=== PATIENT | male | born 1975 | race Caucasian/White ===

== ENCOUNTER → 2024-08-24 09:04 | Outpatient (REF) | payer BC, SELFPAY | LOC: RAD 09:04 | PROVIDERS: ATTENDING PHYSICIAN Physician Assistant Medical; FAMILY PHYSICIAN Family Medicine | DX: R05.9 Cough, unspecified (principal) | CPT/HCPCS: 71046 ==

== ENCOUNTER → 2024-09-04 08:28 | Outpatient (REF) | payer BC, SELFPAY | LOC: RAD 08:28 | PROVIDERS: ATTENDING PHYSICIAN Family Medicine | DX: R05.9 Cough, unspecified (principal); J18.9 Pneumonia, unspecified organism; J40 Bronchitis, not specified as acute or chronic | CPT/HCPCS: 71046 ==

== ENCOUNTER 2025-05-13 01:35 | Inpatient (IN) | payer BC, SELFPAY ==
[2025-05-12 22:19] VITALS: BP 180/106
--- NOTE | 2025-05-12 22:38 | ED.GENMED ---
History of Present Illness
General
Chief Complaint: Chest Pain
Source: patient
Exam Limitations: none
Time Seen by Provider: 05/12/25 22:28
Nursing documentation reviewed up to this point in time: agreed with
History of Present Illness
History of Present Illness:
Patient is a 49-year-old male with history of hypertension who presents with complaints of chest pain. Episodes began yesterday evening lasting approximately 1-1/2 hours. No associated symptoms. Chest pain reportedly substernal radiating to his
left upper chest. He denies shortness of breath nor palpitations, no nausea or vomiting, no diaphoresis. He had similar chest pain this afternoon that lasted about 30 minutes and again tonight after dinner that began around 7 PM, again lasting
around 30 minutes. The pain resolved prior to arrival to the ED. He attempted relief with drinking a cold drink which did not provide immediate resolution, though the symptoms naturally subsided after some time.
He admits to rare, previous episodes of chest pain which generally resolve promptly after drinking a cold drink. Most recently over the past 24 hours, chest pain did not promptly resolve with drinking liquids thus patient became concerned and
presented to the ED.
He has had no URI symptoms, no fever nor chills. No recent travel. No leg pain or swelling. No dizziness nor lightheadedness. No headache.
He does have a history of hypertension, maintained on losartan. He does not monitor his blood pressure at home however yearly visits with his PCP, he states blood pressure is generally well-controlled.
There is no family history of CAD.
Past History
Past History
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 No neurologic sequelae); Negative CAD
ED Past Surgical History: Brain (Meningitis as an infant, temporary intraventricular shunt.)
Social History
Tobacco: Non-smoker
Alcohol: Occasional
Drug: None
Personal:
Living: with family
Employment: Employed
Family History
Family History: Hypertension; Negative CAD or Sudden
Phy Exam
Physical Exam
Physical Exam:
GENERAL: 49-year-old overweight gentleman appears his stated age, awake and alert, very mildly anxious/apprehensive otherwise easily communicative and in no acute distress.
EYE: anicteric
NECK: Supple, nontender, no meningismus, no significant adenopathy. No JVD.
ENT: oral mucosa is moist. No rhinorrhea.
CARDIAC: Regular rate and rhythm. no murmur. No chest wall tenderness.
LUNGS: Clear breath sounds bilaterally, no acute respiratory distress, no wheezes/rales/rhonchi
ABDOMEN: Rotund, soft, nondistended, without focal tenderness, no r/g, normoactive BS.
NEUROLOGICAL: Alert and oriented x3, no focal neuro deficits.
SKIN: Warm and dry, normal color, skin intact. No rash.
MUSCULOSKELETAL: No C/C/E. peripheral pulses are full and equal b/l. Well-perfused. No palpable tenderness.
PSYCH: Normal and appropriate interaction.
Scores
Heart Score for Chest Pain Patients
STEMI patient?: No
History: Moderately Suspicious
ECG: Nonspecific Repolarization
Age: >45 - <65 years
Risk Factors: 1 or 2 Risk Factors
Troponin: >/= 3 x Normal Limit
Heart Score for Chest Pain Patients: 6
Heart Score Risk: 20.3% MACE over next 6 weeks
Course
Orders/Labs/Results
Orders:
Orders
05/12/25 22:12
ECG [Electrocardiogram (*1)] Urgent
Reason for Study: Chest Pain
05/12/25 22:13
EKG- Treatment ONCE
05/12/25 22:37
Aspirin Chewable [Low Strength Aspirin] 324 mg PO NOW STA
05/12/25 23:28
Complete Blood Count/With Diff Urgent
Comprehensive Metabolic Panel Urgent
D-Dimer Urgent
Glycohemoglobin (HgbA1c) Urgent
Troponin I Urgent
05/12/25 23:55
Add On- LAB Urgent
Tests Added?: HgbA1c
05/13/25 00:15
PTT Urgent
Comment: Obtain baseline before beginning heparin infusion if not already collected
Heparin 4,000 units IV NOW STA
Heparin 24097 Units/250 ml 25,000 units in 250 ml IV PER PROTOCOL
Weight to be used for heparin protocol in kilograms (kg):: 123.4
Protocol:: Cardiac Tx/Acute Coronary
PTT Goal Range to be used:: PTT 73 to 111 seconds
Order type:: Initial
INITIAL Infusion Dose (UNITS/KG/hr) & then follow protocol:: 12 units/kg/hr
Infusion Dose in UNITS/hr & then follow protocol (UNITS/hr):: 1,000
INFUSION RATE in mL/hr & then follow protocol (mL/hr):: 10
PTT less than or equal to 64 seconds:: Increase rate by 200 units/hr (+ 2 mL/hr)
PTT 64.1 to 72.9 seconds:: Increase rate by 100 units/hr (+ 1 mL/hr)
PTT 73 to 111 seconds:: Target Range. No change in rate.
PTT 111.1 to 130.9 seconds:: Decrease rate by 100 units/hr (- 1 mL/hr)
PTT 131 to 199.9 seconds:: HOLD for 1 hr. Then decrease rate by 200 units/hr (- 2 mL/hr)
PTT greater than or equal to 200 seconds:: HOLD for 2 hrs & Notify Provider. Then decrease by 200 units/hr (-
2 mL/hr)
Lab follow-up:: Each change, PTT q6h until 2 consecutive are therapeutic. Then PTT
daily.
Pharmacy Request to Place See Dose Instructions PO NOW STA
Discontinue all Active Warfarin orders?: Yes
Nursing to Place Non Medication Order As Directed
Physician Order: PTT 6 hours after initial start of Heparin infusion
05/13/25 00:16
Metoprolol [Lopressor] 5 mg IV NOW STA
Nitroglycerin Ointment [Nitro-Bid] 1 inch TOPICAL NOW STA
05/13/25 01:[address] See Dose Instructions IV DIRECTED
Abnormal Lab Results
05/12/25
23:28
Absolute Monos (auto) 0.7 H 10^3/uL
(0.1-0.6)
Sodium 133 L mmol/L
(135-145)
BUN 22 H mg/dl
(9-20)
Glucose 375 H mg/dl
(70-99)
Troponin I 1.040 H* ng/ml
05/12/25 23:28
05/12/25 23:28
Vital Signs
Initial and Last Documented VS:
Initial Vital Signs
Temp Pulse Resp BP Pulse Ox
97.7 F 108 24 180/106 98
05/12/25 22:19 05/12/25 22:19 05/12/25 22:19 05/12/25 22:19 05/12/25 22:19
Last Documented Vital Signs
Temp Pulse Resp BP Pulse Ox
97.7 F 85 19 162/101 95
05/12/25 22:19 05/12/25 23:45 05/12/25 23:45 05/12/25 23:15 05/12/25 23:45
MDM/Problems Addressed
Differential Diagnosis Includes:
The differential diagnosis includes, in no particular order and is not limited to:
Angina
TN
Costochondritis
GERD
Aortic dissection
Pericarditis
Pneumothorax
Pulmonary embolus
Anxiety or panic disorder
Musculoskeletal pain
EKG shows normal sinus rhythm, left axis deviation, I question very minimal ST elevation inferiorly with flipped T waves in 3 and aVF. No reciprocal changes. No old EKGs to compare.
Initial triage vital signs notes significant hypertension at 180/106. Mild tachycardia at 108.
Will plan to check labs including troponin, D-dimer.
Closely monitor vital signs as well as potline monitor.
Will give 324 mg chewable aspirin.
Will consider imaging depending on clinical course and laboratory findings.
MDM/Problems Addressed:
Acute:
Intermittent chest pain x 24 hours
Chronic conditions affecting care: HTN
*Pulse Oximetry
SaO2: 98
Oxygen Mode of Delivery: Room air
Patient hypoxic: no
*EKG
Interpreted by ED Provider?: Yes
Interpretation: abnormal
Comparison EKG: no comparison EKG present
Rate: normal
Rhythm: sinus
[place]: left axis deviation
Interval: normal interval
QRS Pattern: normal QRS
Ischemia: non-specific ST changes
*Transformation Architect Interpretation
Rate: normal
Interpretation: normal
Rhythm: sinus
*Critical Care Note
Total Time (30-74mins, 75-104mins- exclusive of procedures): 30
comment:
Critical care statement: A total of 30 minutes of critical care time was provided for this patient. This includes management of unstable vital signs, evaluation of the patient at bedside, reviewing the patient's pertinent medical records, discussion
with consultants, review of old EKGs and review of pertinent medical records. This time with separate from time utilized to perform the aforementioned documented procedures
Update Note
Update Note:
Patient remains chest pain-free.
Blood pressures improved to 150/90. Mild sinus tachycardia with heart rate around 100-108
Labs are remarkable for elevated troponin 1.04, consistent with non-STEMI.
Random glucose also elevated at 375. Patient reports no prior history of diabetes nor prediabetes. Hemoglobin A1c has been added to the lab. D-dimer is negative. CBC is normal. Normal renal function.
Will initiate IV heparin bolus and drip for ACS. Will add Nitropaste. Will give an IV dose of Lopressor for hypertension and mild tachycardia.
Will admit to hospitalist service and will notify cardiology as well.
ED Attending Note
-
Portions of this chart may have been created with voice recognition software.� Occasional wrong word or��sound alike� substitutions may have occurred due to the inherent limitations of voice recognition software.
Discharge Plan
Departure
Patient Disposition: Admit
Date of Disposition: 05/13/25
Time of Disposition: 00:23
Admit to: IVU
Admit to doctor: Daniel
Presentation/result/management discussed w/ accepting MD/DO: Hospitalist
Condition: Serious
Discharge Problem:
Non-ST elevated myocardial infarction (non-STEMI)
Referrals:
Mana Carvalho DO [Family Provider, Family Practice]
Interventions
Interventions:
*Risk Screen - Suicide Last Done: 05/12/25 22:19
*General Assessment Last Done: 05/12/25 23:54
*Neglect/Abuse Screening Last Done: 05/12/25 22:19
*ED- Fall Risk Assessment Last Done: 05/12/25 23:54
*ED COVID-19 Vaccine History Last Done: 05/12/25 23:52
*ED Influenza Vaccine History Last Done: 05/12/25 23:52
ED- Cardiac Assessment Last Done: 05/12/25 23:51
Discharge Date and Time
Print Language: INDONESIAN
[2025-05-12 23:15] VITALS: BP 162/101
[2025-05-12 23:40] LABS: Hematocrit 47.7 % (39.0-52.0); Hemoglobin 16.7 g/dL (13.0-18.0); Mean Corp Hgb Conc. 35.0 g/dL (33.0-37.0); Mean Corpuscular Volume 85.9 fL (80.0-94.0); Nucleated Red Blood Cells % 0 % (-); Platelet Count 199 10^3/uL (130-400); Red Cell Dist. Width 11.9 % (11.5-14.5)
[2025-05-12 23:49] LABS: ALT (SGPT) 40 U/L (0-50); AST (SGOT) 33 U/L (17-59); Albumin 4.4 g/dl (3.5-5.0); Alkaline Phosphatase 71 U/L (38-126); Blood Urea Nitrogen 22 mg/dl (9-20); Calcium 9.4 mg/dl (8.4-10.2); Carbon Dioxide 27 mmol/L (22-30); Chloride 100 mmol/L (98-107); Glucose 375 mg/dl (70-99); Potassium 4.5 mmol/L (3.5-5.1); Sodium 133 mmol/L (135-145); Total Protein 6.8 g/dl (6.3-8.2); eGFR > 60.00
[2025-05-12 23:52] VITALS: BMI 36.9
[2025-05-12] MEDS: LOW STRENGTH ASPIRIN 324 MG PO (23:53)
[2025-05-12 23:54] LABS: D-Dimer < 0.27 ug/mlFEU (0.00-0.50)
[2025-05-13] VITALS (25 sets, daily range): BP systolic 114–177; BP diastolic 82–110; BMI 35.8
[2025-05-13 00:06] LABS: Troponin I 1.040 ng/ml
[2025-05-13] MEDS: NITRO-BID 1 INCH TOPICAL (00:50)
[2025-05-13] MEDS: LOPRESSOR 5 MG IV (00:51)
[2025-05-13 01:03] LABS: APTT 23.5 Sec (23.4-35.0)
[2025-05-13] MEDS: HEPARIN 4000 UNITS IV (01:14)
[2025-05-13] MEDS: HEPARIN 25000 UNITS/250 ML IV (01:15)
--- NOTE | 2025-05-13 01:19 | HPS.HSE ---
Family Physician
-
Family Physician: Mana Carvalho
Chief Complaint
-
Chest Pain
History of Present Illness
Patient is a 49y M with PMH significant for hypertension and obesity who presents to ED complaining of chest pain. Patient states that he initially had chest pain last PM after dinner. He noted substernal pain with slight radiation to the L.
No radiation to the back, abdomen, jaw, etc. No associated shortness of breath, diaphoresis, N/V, etc. Patient states that the episode lasted about 30 minutes and then resolved. He was not doing any heavy lifting, exertion, etc at that time.
He had a second episode today around noon. This was shortly after lunch, had same characteristics and also resolved within 30 minutes. This evening he had a third similar episode after dinner and a friend advised him to present to the ED for
evaluation.
Patient denies any prior history of known heart disease. He states that he would occasionally develop some chest tightness in the past that would improve with drinking cold water.
In the ED, patient is pain-free and has no current complaints.
Medical History
Past Medical History
Past Medical History: Reports Other
Additional Past Medical History:
Hypertension
Obesity
Childhood Meningitis
Past Surgical History: Reports Other
Additional Past Surgical History:
Cerebral Shunt for Childhood Meningitis (removed)
Social History
Tobacco: Non-smoker
Alcohol: Occasional
Drug: None
Family History
Family History: Other (Father: HTN Mother: MS No known family history of heart disease, diabetes, etc.)
Allergies / Home Medications
Allergies reflects when Allergies were last updated in [employer]
Home Medications with original date entered in [employer]
Allergy/Medication List:
Allergies
Allergy/AdvReac Type Severity Reaction Status Date / Time
No Known Allergies Allergy Verified 05/12/25 22:21
Home Medications
losartan 50 mg tablet 50 mg PO DAILY 05/13/25
Review of Systems
-
History Source: Patient
A 12 point ROS was completed and negative except as noted: Yes
Constitutional: Denies Fever or Chills
Respiratory: Denies Cough or Trouble Breathing
Cardiac: Reports Chest Pain; Denies Diaphoresis, Palpitations or Syncope
Abdomen/GI: Denies Abdominal Pain, Nausea or Vomiting
: Denies Dysuria or Flank Pain
Musculoskeletal: Denies Joint Pain or Edema
Neurological: Denies Dizzy or Headache
Psych: Denies Depression or Anxiety
Physical Exam
Vital Signs
Vital Signs
Temp Pulse Resp BP Pulse Ox
97.7 F 93 16 167/107 95
05/12/25 22:19 05/13/25 00:51 05/13/25 00:00 05/13/25 00:51 05/13/25 00:00
Physical Exam
General: Other (Midly anxious 49y M in no acute distress.)
HEENT: Moist mucous membranes and Other (Thick neck.)
Respiratory: Clear; No Wheezes, Rales or Rhonchi
Cardiac: S1/S2 and Regular Rhythm; No Murmur
GI: Soft, Non Tender, Non Distended and Normal Bowel Sounds
Musculoskeletal: No Clubbing, No Cyanosis and No Edema
Neuro: AO x 3
Laboratory Results
-
05/12/25 23:28
05/12/25 23:28
Laboratory Results
APTT 23.5 Sec (23.4-35.0) 05/13/25 00:44
Total Bilirubin 0.7 mg/dl (0.2-1.3) 05/12/25 23:28
AST 33 U/L (17-59) 05/12/25 23:28
ALT 40 U/L (0-50) 05/12/25 23:28
Alkaline Phosphatase 71 U/L (38-126) 05/12/25 23:28
Troponin I 1.040 ng/ml H* 05/12/25 23:28
Impression/Plan
-
A/P: Patient is a 49y M with PMH significant for hypertension and obesity who presents to ED complaining of chest pain.
NSTEMI / ACS
Hypertensive Urgency / Emergency
- Admit to IVU for further evaluation and treatment.
- 3 episodes of chest pain in the past [address] with inferior ST changes concerning for ischemia. Initial troponin is 1.040.
- Pain free at present - follow for any recurrent symptoms.
- IV heparin. Begin Toprol, ASA daily, statin, etc.
- Check lipid panel.
- Cardiology consulted for additional recommendations and likely ischemic evaluation.
- Continue losartan. Add Toprol as noted above. NTG as needed for recurrent chest discomfort. IV labetalol as needed for very high BP.
- Adjust med regimen as needed for improved BP control.
DM-II - New
- Glucose on admission is 375 consistent with newly recognized DM.
- Patient reports that it has been a few years since he had routine labs done.
- Follow glucose and cover with SSI as needed.
- Check A1C.
- Diabetic education.
Obesity due to excess calories
- Affects all aspects of care.
- Encourage healthy diet and increased exercise with goal of weight loss.
DVT Prophylaxis: On IV Heparin
Code Status: Full
--- NOTE | 2025-05-13 02:47 | PTCARENOTE ---
Pt rec'd from ED on stretcher awake,alert 'anxious' about hospital stay and needles. Heparin drip at 1000 unit/hr. B/P elevated on adm however not within parameter to give Trandate. No c/o cp or sob. Pt aware to remain npo and call if CP should
reoccur. adm hx taken and recorded.
[2025-05-13 07:29] LABS: INR 0.97; PT 13.2 Sec (11.4-14.6)
[2025-05-13 07:30] LABS: APTT 35.5 Sec (23.4-35.0)
[2025-05-13 07:36] LABS: Blood Urea Nitrogen 20 mg/dl (9-20); Calcium 9.4 mg/dl (8.4-10.2); Carbon Dioxide 25 mmol/L (22-30); Chloride 102 mmol/L (98-107); Estimated Creatinine Clearance > 125 ml/min; Glucose 279 mg/dl (70-99); Potassium 4.5 mmol/L (3.5-5.1); Sodium 134 mmol/L (135-145); Very Low Density Lipoprotein 30 mg/dl (0-30); eGFR > 60.00
[2025-05-13 07:46] LABS: HDL Cholesterol 49 mg/dl; LDL Cholesterol, Calculated 141 mg/dl
[2025-05-13 07:53] LABS: Troponin I 1.540 ng/ml
--- NOTE | 2025-05-13 08:29 | CON.CAR ---
Consultation
Consultation Request
Date/Time Consultation Requested: 05/13/2025 02:00
Date/Time Consultation Performed: 05/13/2025 08:00
Requesting Provider: Dr. Sanchez
Performing Provider: NIA Pina for Dr. Arceo
Reason for Consultation: NSTEMI
Medical History
-
Chief Complaint: Chest pain
History of Present Illness:
Bebeto Mendoza is a 49-year-old male with hypertension, hypercholesterolemia, and anxiety who presented to the emergency department with a chief complaint of chest pain. He had multiple episodes of midsternal anterior chest pain. He describes it as
a pressure/heaviness. No associated diaphoresis, nausea, nor vomiting. He did have some radiation into the left upper chest. His chest pain started early Tuesday morning. This woke him up from his sleep. It was approximately 30 minutes in
duration. It that returned yesterday afternoon at approximately 2 PM while at the [facility]. It went away after 20 minutes. It then returned shortly after dinner. He attributed this to GI issues. His chest pain then returned again last evening. He
is currently chest pain-free at rest. He received ASA 324 in the emergency department and was started on a heparin drip. EKG with inferior T wave abnormality. Initial troponin 1.040. He has significant fasting hyperglycemia, HgbA1c pending.
Past Medical History
Past Medical History: HTN, Hypercholesterolemia, Psychiatric (Anxiety) and Other (Meningitis status post shunt & removal [1970s])
Social History
Tobacco: Non-Smoker (Never smoker)
Alcohol: Other (Rare, a few drinks a year)
Drug: None
Personal:
Employment: Employed
Family History
Family History: Reviewed & Not Pertinent (Denies premature CAD and SCD.)
Allergies / Home Medications
Allergy/AdvReac Type Severity Reaction Status Date / Time
No Known Allergies Allergy Verified 05/12/25 22:21
�Medication �Instructions �Recorded �Confirmed �Type
losartan 50 mg tablet 50 mg PO DAILY 05/13/25 05/13/25 History
Review of Systems
-
History Source: Patient
All other systems: Negative unless noted
Constitutional: No Symptoms
EENT: No Symptoms
Respiratory: No Symptoms
Cardiac: Chest Pain (See HPI)
Abdomen/GI: No Symptoms
: No Symptoms
Musculoskeletal: No Symptoms
Skin: No Symptoms
Neurological: No Symptoms
Endocrine: No Symptoms
Hematologic/Lymphatic: No Symptoms
Physical Exam
Vital Signs
Temp Pulse Resp BP Pulse Ox
97.9 F 84 22 137/86 97
05/13/25 05:15 05/13/25 06:15 05/13/25 05:15 05/13/25 05:16 05/13/25 05:15
Lab Results
05/12/25 23:28
05/13/25 07:11
Troponin I Cancelled 05/13/25 14:09
Physical Exam
General: Well Developed, Well Nourished, No Apparent Distress and Comfortable
HEENT: Normocephalic, Anicteric and Moist Mucous Membranes
Respiratory: Clear
Cardiac: S1/S2 and Regular Rhythm; Negative Peripheral Edema
Breast: Deferred by me
GI: Soft, Non Tender, Non Distended and Normal Bowel Sounds
Rectal: Deferred by Provider
Genito-urinary: No Costovertebral Tender
Musculoskeletal: No Clubbing and No Cyanosis
Skin: Warm and Dry
Neuro: AO x 3
Hematologic/Lymphatic: No Lymphadenopathy
Psych: Calm
Impression / Plan
-
I/P: 49M with hypertension, hypercholesterolemia, and anxiety who presented with chest pain.
Outpatient photographic process worker: None
NSTEMI
- Currently chest pain-free
- Loaded with ASA (324 mg in ER), continue 81 mg daily
- Troponin 1.040 on admission -> 1.540, trend to peak
- Continue heparin drip until cardiac catheterization
- Currently chest pain-free at rest
- Echocardiogram
- Cardiac catheterization today
Hypertension
- Above goal, metoprolol succinate 25 mg twice daily added
- Continue losartan 50 mg
Hypercholesterolemia
- TC 220, LDL 141, HDL 49, TG 154
- Started on atorvastatin 40 mg
- LDL goal to be determined after coronary angiography
Fasting hyperglycemia
- Glucose 279 this morning, HgbA1c pending
Obesity, BMI 35, can consider GLP-1 as an outpatient, await HgbA1c to see which medication he would qualify for
Data Reviewed
-
EKG: Report Reviewed by me
Medical Tests (Nuc Med, Echo etc): Report Reviewed by me
Labs: Labs Reviewed by me
Old Records: Reviewed
Scores
PK for NSTEMI
Age >/= 65: No
>/=3 CAD risk factors-HTN,High Chol,Fam hx CAD,DM,Smoker: Yes
Known CAD (stenosis >/=50%): No
ASA use in past 7 days: No
Severe angina (>/= 2 episodes in 24 hrs): Yes
EKG ST Changes >/= 0.5mm: No
Positive cardiac marker: Yes
Score: 3
Risk at 14 days-mortality, new/recurrent AK, severe ischemia: Intermediate Risk- 13% Risk at 14 days- all cause mortality, new or recurrent AK, or severe recurrent ischemia requiring urgent revascularization
[2025-05-13 08:51] LABS: Glycohemoglobin (HgbA1c) 11.4 % (4.0-5.6)
[2025-05-13] MEDS: TOPROL XL 25 MG PO ×2 (09:05→20:24)
[2025-05-13] MEDS: COZAAR 50 MG PO (09:05)
[2025-05-13] MEDS: LOW STRENGTH ASPIRIN 81 MG PO (09:05)
[2025-05-13 09:15] LABS: Glucose - Point of Care 270 mg/dl (70-99)
[2025-05-13 10:01] LABS: ACT-LR - POC 311 Seconds (116-155)
[2025-05-13 10:18] LABS: ACT-LR - POC 292 Seconds (116-155)
--- NOTE | 2025-05-13 10:24 | ITS.CL.ANGIO ---
Cyber Security Architect - Angioplasty
Angioplasty
Procedure Report:
CARDIAC CATHETERIZATION REPORT
Date of Procedure: 05/13/2025
Referring: Juice Sanchez D.O.
INDICATION: Non-ST elevation myocardial infarction.
PROCEDURE:
1. Left heart catheterization.
2. Coronary angiography.
3. Successful PCI of the distal RCA.
A total of 49 minutes of procedural/moderate sedation was utilized. An independent medical pathologist was present to assist with and help manage the patient's level of consciousness and physiologic status.
ACCESS:
1. 6 Canadian right common femoral artery using a modified Seldinger technique with a micropuncture under ultrasound guidance.
CATHETERS:
1. 5 Canadian JR4.
2. 5 Canadian JL 4.
3. 6 Canadian JR4 guiding catheter.
HEMODYNAMIC DATA
Weight (kg): 119.3
AO (s/d/x, mmHg): 158/97/119
LV (s/x mmHg): 156/15
LEFT VENTRICULOGRAPHY: Not performed.
CORONARY ANGIOGRAPHY
Dominance: Right.
Left Main: Normal size, bifurcating vessel. There is no coronary artery disease.
LAD: Normal size vessel giving rise to 2 diagonals. There are minor luminal irregularities.
Ramus: Congenitally absent.
Circumflex: Normal size, nondominant vessel that is essentially a single large obtuse marginal supplying the lateral wall. There is no coronary artery disease.
RCA: Large size, dominant vessel with a notable posterolateral arcade. There is a critical, 90-95% lesion in the distal RCA immediately proximal to the small RPDA origin.
INTERVENTION(S)
1. Successful PCI of the 90-95% distal RCA lesion (Medtronic [place] 3.0 x 26 EMIL, postdilated with a 3.0 NC balloon) with reduction in stenosis to 0%, maintaining/restoring PK-3 flow.
Narrative:
The decision was made to proceed with percutaneous coronary intervention. The diagnostic catheter was removed over a wire and a 6Fr JR4 guiding catheter was advanced to the aortic root and seated in the right coronary artery. Additional heparin was
given and a Power Turn Flex wire was advanced into the distal RPL. The 90-95% distal RCA lesion was predilated with a 2.0 x 12 semi-compliant balloon to 12 jazmyn. Nitroglycerin 150 mcg was given intracoronary. The semi-compliant balloon was removed
and a Medtronic [place] 3.0 x 26 drug-eluting stent was advanced. The stent was deployed at 12 atmospheres. The stent balloon was removed. A 3.0 x 15 noncompliant balloon was advanced into the stent and the stent was postdilated to 14
atmospheres. Angiography was performed in orthogonal views, confirming good stent expansion and an excellent angiographic result with some sluggish flow in the RPDA in spite of the stent terminating proximal to the origin of the RPDA. Nitroglycerin
150 mcg was given intracoronary with improvement in flow throughout the entire vessel. The coronary wire was withdrawn and the guide was disengaged from the artery. The catheter was removed over a standard J-wire.
Closure Device: 6 Canadian Angio-Seal.
Radiation (mGy): 1250.48
DAP (cm2.Gy): 85.1901
Fluoroscopy time (minutes): 8.8
CONCLUSIONS
1. Right dominant circulation with luminal irregularities in the LAD and a critical, culprit 90-95% lesion in the distal RCA immediately proximal to the origin of the small RPDA, status post successful PCI (Medtronic [place] 3.0 x 26 EMIL,
postdilated with a 3.0 NC balloon) with reduction in stenosis to 0%, maintaining/restoring PK III flow.
2. Mildly elevated filling pressures (LVEDP = 15 mmHg at 119.3 kg).
3. Right radial artery loop, not suitable for central arterial access.
RECOMMENDATIONS:
1. Expectant management after cardiac catheterization via right common femoral approach.
2. Limited weight bearing for one week.
3. Dual antiplatelet therapy with aspirin and ticagrelor for at least 12 months, followed by aspirin indefinitely.
4. OMT/GDMT as hemodynamics will tolerate.
5. Aggressive secondary prevention with high-dose, high potency statin. Goal LDL <55.
6. Echocardiogram ordered and pending.
7. Referral to cardiac rehab.
Copy to: Juice Sanchez D.O., Mana Carvalho D.O.
Ted Arceo DO, FACC, FACP
[2025-05-13] MEDS: NOVOLOG FLEXPEN-LOW RESISTANCE SC (10:32)
--- NOTE | 2025-05-13 10:36 | PTCARENOTE ---
Pt received back from labor relations teacher s/p [facility] with stent to RCA. AAOx3. NSR on tele, HR 90s. Spo2 95%. VSS. R radial site CDI. R femoral dressing CDI. Pt educated about activity restrictions. Assessment documented. Pt resting in bed, call werner in reach.
--- NOTE | 2025-05-13 11:21 | CM ---
Chart reviewed. Patient is independent of ADLS, lives alone in a [facility], children visit 1-2x a week, 2 ESTHER, 0 DME. Plan is for the patient to return home. CM to follow
--- NOTE | 2025-05-13 11:35 | CM ---
Pricing on Brilinta and Ticagrelor through the patient's PP is $0 copay after the patient meets his cumulative deductible of $3000($733) has been met. I will give patient a Good Rx coupon for ticagrelor. [facility]icagrelor is in stock at the [facility]'s [facility].
[2025-05-13] MEDS: NOVOLOG FLEXPEN-LOW RESISTANCE 2 UNITS SC (11:52)
[2025-05-13 11:53] LABS: Glucose - Point of Care 249 mg/dl (70-99)
[2025-05-13 12:36] LABS: Troponin I 1.710 ng/ml
--- NOTE | 2025-05-13 13:45 | PN.DE.MGMTRT ---
Insulin Management
- -
05/13/2025: Diabetes Management Consult
49 year old male with PMH: CAD, HTN, HLD, and Anxiety and new dx T2DM. Patient presented to the ED c/o chest pain. He had multiple episodes of midsternal anterior chest pain. He describes it as a pressure/heaviness. No associated diaphoresis,
nausea, nor vomiting. His glucose on admission was 375 venous and A1C 11.4%, Cr 0.8, eGFR >60. Denies any family h/o diabetes.
Pt awake alert and oriented, resting in bed, s/p PCI of the distal RCA, offers no complaints, able to discuss diabetes care plan.
Fasting glucose was 279 V, 270 POC today. Pre-lunch blood sugar was 249, pt received [address] Grady has ordered basal bolus insulin, Lantus 18 units @ HS, AC NovoLog 6 units and low corrective insulin with meals.
Will make no changes to current regimen. Will closely monitor glucose trend and adjust insulin dose if necessary. Discussed with Nurse
Had a lengthy discussion with pt regarding A1C and glucose levels. Counseled pt on intense lifestyle modification, to avoid diabetes related complications.
Emphasized importance of daily exercise, diabetic diet (avoiding processed foods), consistent glucose monitoring and taking insulin as prescribed.
Pt states 'that is a lot of information for today' he would prefer getting the Diabetes Education for glucose monitor and insulin instructions tomorrow.
Will ask Diabetes Nurse Educator to see pt tomorrow
Diabetes History
- -
Type of Diabetes: 2 requiring insulin
Pre-Admission Diabetes Regimen
05/12/25 05/13/25
23:28 07:11
Creatinine 0.9 0.8
Lab Results
Hemoglobin A1c 11.4 % (4.0-5.6) H 05/12/25 23:28
Insulin Pump Settings
IP Diabetes Regimen
05/12/25 05/13/25 05/13/25
23:28 07:11 09:13
Glucose 375 H 279 H
POC Glucose 270 H
05/13/25
11:51
Glucose
POC Glucose 249 H
Patient Education
--- NOTE | 2025-05-13 14:26 | W.PN.HOSP.TC ---
Today's Communication/Plan
-
Monitor vital signs and see plan
Consult diabetes LAND DEVELOPMENT MANAGER
Start insulin
Cardiac cath today
Nonbillable note
Assessment / Plan
Assessment / Plan
General: no acute distress
HEENT: Moist mucous membranes
Respiratory: Clear; No Wheezes, Rales or Rhonchi
Cardiac: S1/S2 and Regular Rhythm
GI: Soft, Non Tender, Non Distended and Normal Bowel Sounds
Musculoskeletal: No Edema
Neuro: AO x 3
NSTEMI / ACS
Hypertensive Emergency
Trend troponin
Status post successful PCI of distal RCA. Now on aspirin and Brilinta.
Check echo
Continue statin
Continue metoprolol, losartan
IV labetalol as needed for very high BP.
- Adjust med regimen as needed for improved BP control.
DM-II - New
- Glucose on admission is 375 consistent with newly recognized DM.
- Patient reports that it has been a few years since he had routine labs done.
A1c 11.4, consult diabetes LAND DEVELOPMENT MANAGER. Start insulin. Will need teaching
Obesity due to excess calories
- Affects all aspects of care.
- Encourage healthy diet and increased exercise with goal of weight loss.
DVT Prophylaxis: On IV Heparin
Code Status: Full
Anticipated Discharge: 24 - 48 hours
Subjective/Interval History
-
Date of Service: May 13, 2025
Denies chest pain
Objective Data
-
Labs:
Laboratory Results
05/13/25 05/13/25
07:11 14:50
PT 13.2
INR 0.97
APTT 35.5 H Cancelled
Sodium 134 L
Potassium 4.5
Chloride 102
Carbon Dioxide 25
BUN 20
Creatinine 0.8
Glucose 279 H
Calcium 9.4
Vital Signs:
Vital Signs
Temp Pulse Resp BP Pulse Ox
97.5 F 81 15 160/95 93
05/13/25 11:24 05/13/25 12:30 05/13/25 11:24 05/13/25 12:00 05/13/25 12:30
I&O
05/12/25 05/13/25 05/14/25
06:59 06:59 06:59
Intake Total 480 / 480
Output Total 675 / 675
Balance -195 / -195
[2025-05-13 17:43] LABS: Glucose - Point of Care 278 mg/dl (70-99)
[2025-05-13] MEDS: NOVOLOG FLEXPEN 6 UNITS SC (17:46)
[2025-05-13] MEDS: NOVOLOG FLEXPEN-LOW RESISTANCE 3 UNITS SC (17:46)
[2025-05-13] MEDS: LIPITOR 40 MG PO (17:49)
[2025-05-13 18:38] LABS: Troponin I 1.330 ng/ml
[2025-05-13] MEDS: BRILINTA 90 MG PO (20:24)
--- NOTE | 2025-05-13 21:06 | PTCARENOTE ---
Received pt at change of shift resting in bed, pt at bedside. SR-ST on tele, HR 80's-110's. pt denies any CP or SOB at this time. Right radial site with tegaderm intact. Right groin site w/ dressing C/D/I, no bleeding or hematoma noted at this
time. Positive pulses. pt educated on activity restrictions for cath sites, verbalizes understanding. Encouraged pt to call RN with any questions/concerns. Call werner within reach.
[2025-05-13 22:34] LABS: Glucose - Point of Care 191 mg/dl (70-99)
[2025-05-13] MEDS: LANTUS 0.18 UNITS SC (22:34)
--- NOTE | 2025-05-13 23:00 | PTCARENOTE ---
report received from previous RN. pt in bed sleeping, pt at bedside. VSS. NSR on monitor, HR 80's. +peripheral pulses. no edema noted. heart tones clear. pt denies any CP or SOB at this time. right radial site tegaderm CDI. right groin site
dressing CDI, no bleeding or hematoma noted. bilateral breath sounds present. POX 95% on room air. PIV intact and patent. see worklist for full assessment, VS, and interventions.
[2025-05-14] VITALS (9 sets, daily range): BP systolic 97–137; BP diastolic 66–104; BMI 35.1
[2025-05-14 06:00] LABS: Hematocrit 44.4 % (39.0-52.0); Hemoglobin 15.0 g/dL (13.0-18.0); Mean Corp Hgb Conc. 33.8 g/dL (33.0-37.0); Mean Corpuscular Volume 87.1 fL (80.0-94.0); Nucleated Red Blood Cells % 0 % (-); Platelet Count 185 10^3/uL (130-400); Red Cell Dist. Width 12.4 % (11.5-14.5)
[2025-05-14 06:24] LABS: Blood Urea Nitrogen 17 mg/dl (9-20); Calcium 8.5 mg/dl (8.4-10.2); Carbon Dioxide 28 mmol/L (22-30); Chloride 103 mmol/L (98-107); Estimated Creatinine Clearance > 125 ml/min; Glucose 209 mg/dl (70-99); Potassium 4.0 mmol/L (3.5-5.1); Sodium 134 mmol/L (135-145); eGFR > 60.00
--- NOTE | 2025-05-14 07:12 | PN.DE.MGMTRT ---
Insulin Management
- -
05/14/2025: Diabetes Management Consult Follow up
Patient admitted 05/12 with c/o chest pain. PMH: CAD, HTN, HLD, and Anxiety. He had multiple episodes of midsternal anterior chest pain. He describes it as a pressure/heaviness. No associated diaphoresis, nausea, nor vomiting. His glucose on
admission was 375 venous and A1C 11.4%, Cr 0.8, eGFR >60. Denies any family h/o diabetes.
Pt awake alert and oriented, out of bed in chair, s/p PCI of the distal RCA yesterday, offers no complaints, able to discuss diabetes care plan.
Glucose range yesterday 191 to 278. Received 6 units novolog at dinner and 18 units lantus @ HS; fasting glucose today 209.
Will increase HS lantus to 22 units and AC novolog to 8 units.
Demonstrated insulin pen steps for prep and injection technique. Patient very committed to self care and improved diabetes care.
05/13 Had a lengthy discussion with pt regarding A1C and glucose levels. Counseled pt on intense lifestyle modification, to avoid diabetes related complications.
Emphasized importance of daily exercise, diabetic diet (avoiding processed foods), consistent glucose monitoring and taking insulin as prescribed.
Diabetes Nurse Educator to see pt today to provide and instruct on monitor and reinforce insulin prep and administration.
Discussed with nurse.
Will follow.
Diabetes History
- -
Type of Diabetes: 2 requiring insulin
Pre-Admission Diabetes Regimen
05/13/25 05/14/25
07:11 05:34
Creatinine 0.8 0.7
Lab Results
Hemoglobin A1c 11.4 % (4.0-5.6) H 05/12/25 23:28
Insulin Pump Settings
IP Diabetes Regimen
05/13/25 05/13/25 05/13/25
07:11 09:13 11:51
Glucose 279 H
POC Glucose 270 H 249 H
05/13/25 05/13/25 05/14/25
17:42 22:33 05:34
Glucose 209 H
POC Glucose 278 H 191 H
Meal type: Dinner
Meal type: Lunch
Amount consumed: 100%
Amount consumed: 100%
Patient Education
[2025-05-14 07:15] LABS: Glucose - Point of Care 200 mg/dl (70-99)
[2025-05-14] MEDS: TOPROL XL 25 MG PO ×2 (07:56→20:11)
[2025-05-14] MEDS: LOW STRENGTH ASPIRIN 81 MG PO (07:56)
[2025-05-14] MEDS: BRILINTA 90 MG PO ×2 (07:57→20:11)
[2025-05-14] MEDS: FLUSH (NSS) 1 FLUSH IV (07:57)
[2025-05-14] MEDS: COZAAR 50 MG PO (07:58)
--- NOTE | 2025-05-14 08:24 | W.PN.CD ---
Today's Communication / Plan
-
Echocardiogram.
Glucose control.
He would be an ideal candidate for GLP-1 medications as an outpatient.
Discharge planning (today vs. tomorrow).
Impression / Plan
-
Impression/Plan: 49M with hypertension, hypercholesterolemia, and anxiety admitted with NSTEMI.
#NSTEMI
-Acute, threat to life.
-Troponin 1.040 --> 1.540 --> 1.710 --> 1.330.
-S/P cardiac catheterization/PCI of the dRCA (Medtronic Dandre 3.0 x 26 EMIL, post dilated with a 3.0 NC balloon) with reduction in stenosis to 0%, maintaining PK III flow.
-Echocardiogram pending.
-DAPT with aspirin and ticagrelor for 12 months, followed by aspirin indefinitely.
-Continue atorvastatin, metoprolol and losartan.
-Referral to cardiac rehab.
#Hypertension
-Chronic, mildly/moderately uncontrolled.
-Metoprolol succinate 25 mg twice daily added with some improvement.
-Continue losartan 50 mg.
#Hypercholesterolemia
-Probably chronic, but a new diagnosis.
-TC 220, LDL 141, HDL 49, TG 154.
-Continue atorvastatin 40 mg daily. Goal LDL < 55, triglycerides < 150.
#DM2
-New diagnosis, uncontrolled.
-HbA1c = 11.4%.
-Management per primary.
-Hold metformin today, start tomorrow given recent cath/contrast exposure.
-He would be an ideal candidate for GLP-1 analog medications at the time of discharge.
#Obesity
-Chronic, BMI 35.
-Weight loss will be beneficial.
-GLP-1 medications clearly indicated.
Subjective/Interval History:
Cath yesterday with PCI of the dRCA.
Troponin peaked at 1.710.
HbA1c = 11.4%.
DATA:
Cardiac Catheterization/PCI, 05/13/2025:
CONCLUSIONS
1. Right dominant circulation with luminal irregularities in the LAD and a critical, culprit 90-95% lesion in the distal RCA immediately proximal to the origin of the small RPDA, status post successful PCI (Medtronic Dandre [place] 3.0 x 26 EMIL,
postdilated with a 3.0 NC balloon) with reduction in stenosis to 0%, maintaining/restoring PK III flow.
2. Mildly elevated filling pressures (LVEDP = 15 mmHg at 119.3 kg).
3. Right radial artery loop, not suitable for central arterial access.
Physical Exam
Vital Signs/Labs
Vital Signs
Temp Pulse Resp BP Pulse Ox
36.9 C 83 18 131/102 94
05/14/25 07:10 05/14/25 08:00 05/14/25 07:10 05/14/25 08:00 05/14/25 07:10
05/12/25 05/13/25 05/14/25
11:59 11:59 11:59
Actual Weight 119.6 kg
05/14/25 05:34
05/14/25 05:34
PT 13.2 Sec (11.4-14.6) 05/13/25 07:11
INR 0.97 05/13/25 07:11
APTT Cancelled 05/13/25 14:50
Triglycerides 154 mg/dl (10-149) H 05/13/25 07:11
LDL Cholesterol, Calc 141 mg/dl 05/13/25 07:11
VLDL Cholesterol, Calc 30 mg/dl (0-30) 05/13/25 07:11
HDL Cholesterol 49 mg/dl 05/13/25 07:11
LAB Results
05/12/25 05/13/25 05/13/25
23:28 01:30 02:09
Troponin I 1.040 H* Cancelled Cancelled
05/13/25 05/13/25 05/13/25
07:11 08:09 11:46
Troponin I 1.540 H* D Cancelled 1.710 H*
05/13/25 05/13/25
14:09 17:58
Troponin I Cancelled 1.330 H*
Physical Exam
Constitutional: No acute distress and Comfortable
EENT: Anicteric and Moist mucous membranes
Cardiovascular: Rhythm & rate is regular, Pedal edema is absent, JVD pressure is normal, S1S2 is normal and Murmur/rub/gallop absent
Respiratory: Respiratory effort normal, Lungs clear to auscul., Wheeze Absent, Crackles Absent and Rhonchi Absent
GI: Soft, Distention absent, Flat, Non tender and Normal bowel sounds
Neuro/Psych: AO x 3
Other: Cath Site (Right femoral access site is C/D/I.)
Data Reviewed
-
Date of Service: May 14, 2025
Medical Decision Making: Reviewed Test Results, Independent Historian Assessment and Test Interpretation
EKG: Tracing Personally Visualized and interpreted and Report Reviewed by me
Echo: Ordered by me
X-Ray/CT/US/MRI/NUC/PET: Image Personally Visualized and interpreted and Report Reviewed by me
Medical Tests (PFT, Pathology etc): Image Personally Visualized and interpreted and Report Reviewed by me
Labs: Labs Reviewed by me
--- NOTE | 2025-05-14 09:26 | CM ---
Pricing on Ozempic and monjaro are both covered under the diagnosis code of Type 2 DM. They will need prior authorization sent in to [email or web address]. After patient meets his total deductible of $3000, both are covered at $0.
[2025-05-14 10:04] LABS: Glucose - Point of Care 236 mg/dl (70-99)
[2025-05-14] MEDS: NOVOLOG FLEXPEN 8 UNITS SC ×3 (10:10→19:27)
[2025-05-14] MEDS: NOVOLOG FLEXPEN-LOW RESISTANCE 2 UNITS SC ×3 (10:10→19:26)
--- NOTE | 2025-05-14 10:56 | CM ---
Chart reviewed. Patient is independent of ADLS, lives alone in a 2 STH, 4STE, 0 DME. Plan is for the patient to return home. CM to follow
[2025-05-14 13:42] LABS: Glucose - Point of Care 237 mg/dl (70-99)
--- NOTE | 2025-05-14 13:47 | W.PN.HOSP.TC ---
Today's Communication/Plan
-
monitor vitals
see plan
Insulin teaching
Continue with Lantus, mealtime insulin
Metformin
Continue with beta-doug, losartan
Assessment / Plan
Assessment / Plan
General: no acute distress
HEENT: Moist mucous membranes
Respiratory: Clear; No Wheezes, Rales or Rhonchi
Cardiac: S1/S2 and Regular Rhythm
GI: Soft, Non Tender, Non Distended and Normal Bowel Sounds
Musculoskeletal: No Edema
Neuro: AO x 3
NSTEMI / ACS
Hypertensive Emergency
Trend troponin
Status post successful PCI of distal RCA. Now on aspirin and Brilinta.
Echo with normal EF
Continue statin
Continue metoprolol, losartan
IV labetalol as needed for very high BP.
- Adjust med regimen as needed for improved BP control.
DM-II - New
- Glucose on admission is 375 consistent with newly recognized DM.
- Patient reports that it has been a few years since he had routine labs done.
A1c 11.4, consult diabetes DECKHAND OYSTER DREDGE. Start insulin. Needs insulin teaching
Obesity due to excess calories
- Affects all aspects of care.
- Encourage healthy diet and increased exercise with goal of weight loss.
DVT Prophylaxis: SCD's
Code Status: Full
Anticipated Discharge: Within 24 hours
Subjective/Interval History
-
Date of Service: May 14, 2025
Denies pain
Objective Data
-
Labs:
Laboratory Results
05/14/25
05:34
WBC 8.1
Hgb 15.0
Hct 44.4
Plt Count 185
Sodium 134 L
Potassium 4.0
Chloride 103
Carbon Dioxide 28
BUN 17
Creatinine 0.7
Glucose 209 H
Calcium 8.5
Vital Signs:
Vital Signs
Temp Pulse Resp BP Pulse Ox
98.3 F 97 18 120/84 99
05/14/25 11:14 05/14/25 12:00 05/14/25 11:14 05/14/25 11:12 05/14/25 11:14
I&O
05/13/25 05/14/25 05/15/25
06:59 06:59 06:59
Intake Total 480 / 480
Output Total 675 / 675
Balance -195 / -195
--- NOTE | 2025-05-14 14:53 | PTCARENOTE ---
05/14/2025 DIABETES EDUCATION CONSULTATION
I met with patient and significant other to review diabetes management. he is newly diagnosed, is IP for an NSTEMi with angioplasty.
I educated on physiology of T2D, organ damage, managing with medications, monitoring BG, nutrition, activity, sleep and managing stress. I reinforced signs of hyperglycemia, hypoglycemia and hypoglycemia protocol; BS parameters and recommended HbA1c
goals, glucometer and CGM instructions, glucose tracker, medic alert bracelet and outpatient DSME program. He is interested in the OP DSME program beginning 05/20/2025. Appt set for registration appointment on 05/17/2025. Written material
provided.
I provided patient with Bob 3+ CGM, placed on L. arm, assisted with application set up, and provided brochure with additional information.
Reminded patient results are not accurate for first 24 hours, and to double check with a finger stick if he feels CGM is not providing accurate results.
I educated patient that CGM is placed with filament in interstitial fluid, results can be 15% different than fingerstick. Reviewed the application functionality: reports, alarms, entering food and insulin dosing.
I provided patient with a [employer] glucometer sample kit. Provided verbal instructions on proper blood sugar testing technique, and demonstration with patient�s participation.
I educated and demonstrated on insulin injection technique, timing, and storage. Discussed long and short acting insulin; onset/peak/duration, and encouraged her to administer his own injections with RN supervision while admitted. Discussed normal
target glucose ranges and a monitoring schedule 15 minutes before each meal when prescribed Novolog, and before bedtime.
Encouraged patient to follow up with his PCP for post d/c appointment and to monitor medication and blood glucose levels. Provided list of endocrinologists if desired, to contact insurance company to verify in network status. He states he
placed a call to an military source operations specialist today, is waiting to hear back regarding an appointment. He anticipates discharge by end of day 05/15/2025. Requested a prescription for blood sugar testing supplies to be sent to his pharmacy on record.
Patient verbalized understanding.
--- NOTE | 2025-05-14 15:16 | PTCARENOTE ---
The patient administered his lunch time insulin with little coaching and proper technique.
[2025-05-14 18:55] LABS: Glucose - Point of Care 204 mg/dl (70-99)
[2025-05-14] MEDS: LIPITOR 40 MG PO (19:27)
--- NOTE | 2025-05-14 20:24 | PTCARENOTE ---
Resumed care of pt ambulating in hallway with . Pt HR in the low 100's while walking, in the 90's in NSR once at rest. Pt AAOx3. POX 95% on Ra. Lungs clear. + bowel, round obese abd. Pt ambulating to bathroom independently when needed. Palpable
peripheral pulses present. Right groin cath site with dressing clean dry and intact with local ecchymosis. Right radial site intact with tegaderm in place. left AC int capped. diabetes education discussed. No issues to report at this time. Call werner
in reach. Will continue to monitor.
[2025-05-14 21:50] LABS: Glucose - Point of Care 127 mg/dl (70-99)
[2025-05-14] MEDS: LANTUS 0.22 UNITS SC (22:15)
[2025-05-14] MEDS: SENOKOT-S 1 TABLET PO (22:15)
[2025-05-15 03:06] LABS: Glucose - Point of Care 145 mg/dl (70-99)
[2025-05-15 03:07] VITALS: BP 119/88
[2025-05-15 04:50] VITALS: BMI 35.1
[2025-05-15 05:11] LABS: Hematocrit 46.2 % (39.0-52.0); Hemoglobin 16.1 g/dL (13.0-18.0); Mean Corp Hgb Conc. 34.8 g/dL (33.0-37.0); Mean Corpuscular Volume 88.2 fL (80.0-94.0); Nucleated Red Blood Cells % 0 % (-); Platelet Count 202 10^3/uL (130-400); Red Cell Dist. Width 12.1 % (11.5-14.5)
[2025-05-15 05:33] LABS: Blood Urea Nitrogen 19 mg/dl (9-20); Calcium 9.2 mg/dl (8.4-10.2); Carbon Dioxide 26 mmol/L (22-30); Chloride 104 mmol/L (98-107); Estimated Creatinine Clearance > 125 ml/min; Glucose 169 mg/dl (70-99); Potassium 4.3 mmol/L (3.5-5.1); Sodium 136 mmol/L (135-145); eGFR > 60.00
[2025-05-15 07:06] VITALS: BP 128/92
[2025-05-15] MEDS: NOVOLOG FLEXPEN-LOW RESISTANCE 1 UNITS SC ×2 (07:07→12:46)
[2025-05-15 07:08] LABS: Glucose - Point of Care 165 mg/dl (70-99)
[2025-05-15] MEDS: NOVOLOG FLEXPEN 8 UNITS SC ×2 (07:08→12:47)
[2025-05-15] MEDS: COZAAR 50 MG PO (07:09)
[2025-05-15] MEDS: TOPROL XL 25 MG PO (07:09)
[2025-05-15] MEDS: GLUCOPHAGE 500 MG PO (07:09)
[2025-05-15] MEDS: LOW STRENGTH ASPIRIN 81 MG PO (07:09)
[2025-05-15] MEDS: BRILINTA 90 MG PO (07:10)
[2025-05-15 07:35] VITALS: BP 128/92
--- NOTE | 2025-05-15 08:51 | PN.DE.MGMTRT ---
Insulin Management
- -
05/15/2025: Diabetes Management Consult Follow up
Patient admitted 05/12 with c/o chest pain. PMH: CAD, HTN, HLD, and Anxiety. He had multiple episodes of midsternal anterior chest pain. He describes it as a pressure/heaviness. No associated diaphoresis, nausea, nor vomiting. His glucose on
admission was 375 venous and A1C 11.4%, Cr 0.8, eGFR >60. Denies any family h/o diabetes.
Pt awake alert and oriented, out of bed in chair, s/p PCI of the distal RCA yesterday, offers no complaints, able to discuss diabetes care plan.
Glucose range yesterday 204 to 237. Novolog increased to 8 units lantus increased to 22 units @ HS; fasting glucose today 169.
Will continue HS lantus 22 units and AC novolog 8 units with low corrective. Metformin 500 mg BID to start today.
Demonstrated insulin pen steps for prep and injection technique. Patient very committed to self care and improved diabetes care. Patient with many questions about where to take injections, what dose to take, what to eat, how to keep insulin. All
questions answered.
Diabetes Nurse Educator saw pt provided and instruct on monitor and Bob CGM and reinforced insulin prep and administration.
Discussed with nurse.
Will follow.
Diabetes History
- -
Type of Diabetes: 2 requiring insulin
Pre-Admission Diabetes Regimen
05/15/25
04:44
Creatinine 0.8
Lab Results
Hemoglobin A1c 11.4 % (4.0-5.6) H 05/12/25 23:28
Insulin Pump Settings
IP Diabetes Regimen
05/14/25 05/14/25 05/14/25
10:03 13:41 18:53
Glucose
POC Glucose 236 H 237 H 204 H
05/14/25 05/15/25 05/15/25
21:49 03:05 04:44
Glucose 169 H
POC Glucose 127 H 145 H
05/15/25
07:06
Glucose
POC Glucose 165 H
Meal type: Dinner
Meal type: Lunch
Meal type: Breakfast
Amount consumed: 100%
Amount consumed: 100%
Amount consumed: 100%
Patient Education
[2025-05-15] MEDS: SENOKOT-S PO (09:21)
--- NOTE | 2025-05-15 09:22 | PTCARENOTE ---
Patient received by hourly shift manager nurse, Pt AAOx4, No N/V/D, no CP/PALP. Appears anxious about new diagnose of DM. Patient reassured and educated on the fundamentals and importance of life style changes. Patient receptive. at bedside. Morning
Meds administered, VS taken, and morning breakfast called in. All questions and concerns answered.
[2025-05-15 11:14] VITALS: BP 134/88
--- NOTE | 2025-05-15 11:30 | W.PN.HOSP.TC ---
Today's Communication/Plan
-
Monitor vitals
See plan
Continue with insulin
Continue with aspirin and Brilinta
Continue with metoprolol, losartan
Discharge today
Time of discharge 38 minutes
Assessment / Plan
Assessment / Plan
General: no acute distress
HEENT: Moist mucous membranes
Respiratory: Clear; No Wheezes, Rales or Rhonchi
Cardiac: S1/S2 and Regular Rhythm
GI: Soft, Non Tender, Non Distended and Normal Bowel Sounds
Musculoskeletal: No Edema
Neuro: AO x 3
NSTEMI / ACS
Hypertensive Emergency
Status post successful PCI of distal RCA. Now on aspirin and Brilinta.
Echo with normal EF
Continue statin
Continue metoprolol, losartan
IV labetalol as needed for very high BP.
- Adjust med regimen as needed for improved BP control.
DM-II - New
- Glucose on admission is 375 consistent with newly recognized DM.
- Patient reports that it has been a few years since he had routine labs done.
A1c 11.4, consult diabetes SERVER SOFTWARE ENGINEER. cw insulin. Not comfortable taking insulin. Has akanksha and Contour. Discharge today
Obesity due to excess calories
- Affects all aspects of care.
- Encourage healthy diet and increased exercise with goal of weight loss.
DVT Prophylaxis: SCD's
Code Status: Full
Anticipated Discharge: Today
Subjective/Interval History
-
Date of Service: May 15, 2025
denies pain
Objective Data
-
Labs:
Laboratory Results
05/15/25
04:44
WBC 8.4
Hgb 16.1
Hct 46.2
Plt Count 202
Sodium 136
Potassium 4.3
Chloride 104
Carbon Dioxide 26
BUN 19
Creatinine 0.8
Glucose 169 H
Calcium 9.2
Vital Signs:
Vital Signs
Temp Pulse Resp BP Pulse Ox
98.2 F 91 18 128/92 98
05/15/25 11:16 05/15/25 11:16 05/15/25 11:16 05/15/25 07:35 05/15/25 11:16
I&O
05/14/25 05/15/25 05/16/25
06:59 06:59 06:59
Intake Total 480 / 480 480 / 480
Output Total 675 / 675
Balance -195 / -195 480 / 480
--- NOTE | 2025-05-15 12:00 | W.PN.CD ---
Today's Communication / Plan
-
Blood culture.
Repeat echo in 2-4 weeks.
DAPT.
GLP-1 analog at discharge.
Stable for outpatient follow up.
Impression / Plan
-
Impression/Plan: 49M with hypertension, hypercholesterolemia, and anxiety admitted with NSTEMI.
#NSTEMI
-Acute, threat to life.
-Troponin 1.040 --> 1.540 --> 1.710 --> 1.330.
-S/P cardiac catheterization/PCI of the dRCA (Medtronic Novato 3.0 x 26 EMIL, post dilated with a 3.0 NC balloon) with reduction in stenosis to 0%, maintaining PK III flow.
-Echocardiogram pending.
-DAPT with aspirin and ticagrelor for 12 months, followed by aspirin indefinitely.
-Continue atorvastatin, metoprolol and losartan.
-Referral to cardiac rehab.
#Abnormal Echo
-New diagnosis.
-Echocardiogram density paralleling anterior mitral leaflet.
-No evidence of sepsis. We will check a blood culture now prior to discharge, but there is no indication for antibiotics at this time.
-Repeat echocardiogram in 2-4 weeks.
#Hypertension
-Chronic, mildly/moderately uncontrolled.
-Continue losartan 50 mg and metoprolol succinate 25 mg BID.
#Hypercholesterolemia
-Probably chronic, but a new diagnosis.
-TC 220, LDL 141, HDL 49, TG 154.
-Continue atorvastatin 40 mg daily. Goal LDL < 55, triglycerides < 150.
#DM2
-New diagnosis, uncontrolled.
-HbA1c = 11.4%.
-Management per primary.
-Hold metformin today, start tomorrow given recent cath/contrast exposure.
-He would be an ideal candidate for GLP-1 analog medications at the time of discharge.
#Obesity
-Chronic, BMI 35.
-Weight loss will be beneficial.
-GLP-1 medications clearly indicated.
Subjective/Interval History:
Feels well.
Echo shows preserved systolic function and a linear opacity parallel to the anterior mitral leaflet - possibly MAC vs. shadowing or eccentric valve thickening or old, healed IE (less likely).
DATA:
Cardiac Catheterization/PCI, 05/13/2025:
CONCLUSIONS
1. Right dominant circulation with luminal irregularities in the LAD and a critical, culprit 90-95% lesion in the distal RCA immediately proximal to the origin of the small RPDA, status post successful PCI (Medtronic Dandre [place] 3.0 x 26 EMIL,
postdilated with a 3.0 NC balloon) with reduction in stenosis to 0%, maintaining/restoring PK III flow.
2. Mildly elevated filling pressures (LVEDP = 15 mmHg at 119.3 kg).
3. Right radial artery loop, not suitable for central arterial access.
TTE, 05/14/2025:
SUMMARY
1. Normal biventricular size and systolic function. No LV wall motion abnormalities. LVEF estimated at 50 to 55%.
2. Mild concentric LVH.
3. Thickening of the mitral valve leaflets, particularly the anterior leaflet. No stenosis or regurgitation.
4. 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 Ascending aorta 3.8 cm.
5. No prior study available for comparison.
Physical Exam
Vital Signs/Labs
Vital Signs
Temp Pulse Resp BP Pulse Ox
36.8 C 91 18 128/92 98
05/15/25 11:16 05/15/25 11:16 05/15/25 11:16 05/15/25 07:35 05/15/25 11:16
05/14/25 05/15/25 05/16/25
11:59 11:59 11:59
Actual Weight 117.3 kg 117.3 kg
05/15/25 04:44
05/15/25 04:44
PT 13.2 Sec (11.4-14.6) 05/13/25 07:11
INR 0.97 05/13/25 07:11
APTT Cancelled 05/13/25 14:50
Triglycerides 154 mg/dl (10-149) H 05/13/25 07:11
LDL Cholesterol, Calc 141 mg/dl 05/13/25 07:11
VLDL Cholesterol, Calc 30 mg/dl (0-30) 05/13/25 07:11
HDL Cholesterol 49 mg/dl 05/13/25 07:11
LAB Results
05/12/25 05/13/25 05/13/25
23:28 01:30 02:09
Troponin I 1.040 H* Cancelled Cancelled
05/13/25 05/13/25 05/13/25
07:11 08:09 11:46
Troponin I 1.540 H* D Cancelled 1.710 H*
05/13/25 05/13/25
14:09 17:58
Troponin I Cancelled 1.330 H*
Physical Exam
Constitutional: No acute distress and Comfortable
EENT: Anicteric and Moist mucous membranes
Cardiovascular: Rhythm & rate is regular, Pedal edema is absent, JVD pressure is normal, S1S2 is normal and Murmur/rub/gallop absent
Respiratory: Respiratory effort normal, Lungs clear to auscul., Wheeze Absent, Crackles Absent and Rhonchi Absent
GI: Soft, Distention absent, Flat, Non tender and Normal bowel sounds
Neuro/Psych: AO x 3
Other: Cath Site (Right femoral access site is C/D/I.)
Data Reviewed
-
Date of Service: May 15, 2025
Medical Decision Making: Reviewed Test Results, Independent Historian Assessment and Test Interpretation
EKG: Tracing Personally Visualized and interpreted and Report Reviewed by me
Echo: Tracing Personally Visualized and interpreted and Report Reviewed by me
X-Ray/CT/US/MRI/NUC/PET: Image Personally Visualized and interpreted
Medical Tests (PFT, Pathology etc): Image Personally Visualized and interpreted and Report Reviewed by me
Labs: Labs Reviewed by me
Old Records: Reviewed
[2025-05-15 12:42] LABS: Glucose - Point of Care 180 mg/dl (70-99)
--- NOTE | 2025-05-15 16:14 | W.DCSUMMARY ---
Discharge Summary
Discharge Data
Date of Admission: 05/13/25
Date of Discharge: 05/15/25
-
Pending Results: Yes
Hospital Course
49-year-old male with past medical history of obesity came to the hospital with chest pain consistent with non-ST elevation myocardial infarction along with hypertensive emergency. Patient was seen by cardiology and was taken for cardiac
catheterization with successful PCI of distal RCA. Patient was then started on aspirin and Brilinta. On this hospitalization he was also diagnosed with new onset diabetes mellitus. He was seen by diabetes nurse bradly. His A1c was 11.4. He
was then started on metformin and insulin. Insulin teaching was done while he was in the hospital. Once his symptoms continue to improve, he was then discharged home with instructions to follow-up with all the physicians outpatient.
Discharge Plan
-
Patient Disposition: Home (Routine Discharge)
Discharge Diagnosis/Procedures: NSTEMI, s/p angioplasty and stent to Right Coronary artery
New onset DM
Condition: Fair
Diet: Diabetic, Carb Controlled
Activity: As tolerated
Driving Restrictions: No driving for 24 hours
Other Services: Cardiac Rehab
Stand Alone Forms: DC Instructions- Cath/EP Lab
Referrals:
[facility]. Cardiac Rehab [Outside] - 06/05/25 1:00 pm
Referral Note: Cardiac Rehab Orientation appointment and First Exercise appointment is on 06/05/25 at 1pm.
The Cardiac Rehab gym is located on the first floor of the [facility].
Mana Carvalho DO [Family Provider, Family Practice] - in less than 1 week
Tammy Sellers CRNP [Specified Professional Personl, Cardiology] - 06/03/25 8:40 am
Prescriptions:
New
ticagrelor 90 mg Tablet
90 mg PO BID Qty: 60 11RF
atorvastatin 40 mg Tablet
40 mg PO QPM Qty: 30 0RF
metformin 500 mg Tablet
500 mg PO BID@0800,1700 Qty: 60 0RF
nitroglycerin 0.4 mg Tablet, Sublingual
0.4 mg sublingual [id number] PRN (Reason: Chest Pain) Qty: 30 0RF
aspirin 81 mg Tablet,Chewable
81 mg PO DAILY Qty: 30 0RF
metoprolol succinate 25 mg Tablet Extended Release 24 Hr
25 mg PO BID Qty: 60 0RF
(DME) Contour Next Test Strips Strip
Qty: 200 0RF
Rx Instructions:
As Directed
insulin aspart U-100 [Novolog FlexPen U-100 Insulin] 100 unit/mL (3 mL) Insulin Pen
8 unit SC AC Qty: 5 0RF
insulin glargine [Lantus Solostar U-100 Insulin] 100 unit/mL (3 mL) Insulin Pen
22 unit SC HS Qty: 5 0RF
(DME) lancets [Color Lancets] 21 gauge Misc
Qty: 200 0RF
Rx Instructions:
As Directed
(DME) pen needle, diabetic [Josie 2nd Gen Pen Needle] 32 gauge x 5/32' Needle
Qty: 200 1RF
Rx Instructions:
For use with lantus and novolog penAs Directed
(DME) pen needle, diabetic [TechLITE Pen Needle] 32 gauge x 5/32' Needle
Qty: 200 0RF
Rx Instructions:
inject insulin 4 times per day As Directed
Continued
losartan 50 mg tablet
50 mg PO DAILY
Discharge Orders:
Discharge Patient (As Directed); Ordered 05/15/25
Ordered By: Epi Grady
Care Plan Goals
Care Plan Goals:
Problem: Readiness for enhanced knowledge related to diagnosis and treatment plan
Goal: Understand your diagnosis and treatment plan needs, including medications if applicable.
Instructions: Know your diagnosis, underlying causes and treatment plan options, including medications if applicable. Consult with your health care team to learn about your diagnosis and treatment plan, including medications if applicable.
Discharge Date and Time
Discharge Date/Time: 05/15/25 14:21
Print Language: MACEDONIAN
== END 2025-05-15 14:21 | disposition home or self-care (01) | DRG 322 ==
LOC: IVU 01:35
PROVIDERS: ADMITTING PHYSICIAN Hospitalist; ATTENDING PHYSICIAN Internal Medicine; EMERGENCY PHYSICIAN Emergency Medicine; FAMILY PHYSICIAN Family Medicine; OTHER PHYSICIAN Internal Medicine Cardiovascular Disease
PROC: 4A023N7 Measurement of Cardiac Sampling and Pressure, Left Heart, Percutaneous Approach (ICD-10-PCS; 2025-05-13)
PROC: 027034Z Dilation of Coronary Artery, One Artery with Drug-eluting Intraluminal Device, Percutaneous Approach (ICD-10-PCS; 2025-05-13)
PROC: B2111ZZ Fluoroscopy of Multiple Coronary Arteries using Low Osmolar Contrast (ICD-10-PCS; 2025-05-13)
DX: I21.4 Non-ST elevation (NSTEMI) myocardial infarction (principal); I16.1 Hypertensive emergency; E11.9 Type 2 diabetes mellitus without complications; E66.09 Other obesity due to excess calories; Z68.35 Body mass index [BMI] 35.0-35.9, adult; I10 Essential (primary) hypertension; Z79.4 Long term (current) use of insulin; Z79.899 Other long term (current) drug therapy; Z86.61 Personal history of infections of the central nervous system
CPT/HCPCS: 80048; 80053; 80061; 82962; 83036; 84484; 85025; 85347; 85379; 85610; 85730; 87040; 93005; 93306; 93458; 96374; 96375; 99152; 99153; 99291; C1725; C1769; C1874; C1894; C9600; Q9967

== ENCOUNTER → 2025-05-20 13:21 | Outpatient (REF) | payer BC, SELFPAY ==
--- NOTE | 2025-05-17 14:09 | PN.DIAED02 ---
Referral
DSME Class Series Code: [id number]
Referred For: Diabetes Self-Management Training, Medical Nutrition Therapy, Self-Blood Glucose Monitoring, Long-Term Complication Instruction, Accute Complication Instruction, Continuous Glucose Monitoring, Medication management, Insulin
Instruction, Care Coordination, Disease Management
PHI Release Authorization Form Signed: Yes
Demographic
Patient's primary language-: Syriac
Education: Advanced college degree ()
Occupation: Professional (contract attorney)
Hours Worked/Week: 20-40
Shift: Day
- Social
Primary Support Person: Self
Primary Care Takers: Self
Living Arrangements: Self
- Learning Methods
Preferred Method: Hands-on demonstration
Barriers to Learning: None
Glycemic Control
- Blood Glucose Monitoring Assessment
Blood glucose monitoring at home: Yes
Monitor Brands: Other (Bob 3+ CGM and Contour Next Gen glucometer)
Frequency: >4x per day
Time: fasting, before breakfast, after breakfast, before lunch, after lunch, before dinner, after dinner, bedtime
- Hyperglycemia Assessment
Experiences Hyperglycemia: Yes
Frequency: 1-3x per week
- Hypoglycemia Assessment
Patient experiences hypoglycemia: No
- Blood Glucose Monitoring Results
Source: meter (CGM and glucometer)
- Hemoglobin A1c
Date: 05/13/25
A1C Percentage (%): 11.4
Medical History of Diabetes
Previous Diabetes Education: No
Previous visit with Dietitian: No
Complications/Comorbidity/Specialist: Heart Disease (TICAGRELOR 90 MG BID, NITROGLYCERINE 0.4 MG SL TID PRN FOR CP), Hypertension (METOPROLOL SUCCINATE ER 25 MG BID, LOSARTAN POTASSIUM 50 MG QD, ASA 81 MG QD), Hyperlipidemia (ATORVASTATIN 40 MG QD),
Metabolic (T2D: METFORMIN 500 MG BID, ASPART 8 UNITS AC, GLARGINE 22 U HS), Other / symptoms (STENTS PLACED 05/13/2025)
Current Home Medication
- Insulin Management
Patient adjusts own insulin dosages: No
Patient has access to glucagon: No
- Insulin Types
Novolog Lantus
Insulin Injection Site: Abdomen, Thigh (NOVOLOG ADMINISTERED IN ABDOMEN, LANTUS ADMINISTERED IN THIGH)
Administration Type: SoloSTAR
Measures
- Anthropometrics
Height: 6 ft
Actual Weight: 200 lb
- Blood Pressure / Pulse
Blood pressure: 126/78
Pulse: 85
- Diabetes Management
Medical Management for Diabetes: Complete physical exam (STATES IN LAST 3 MONTHS), Dental exam (05/09/2025), Other (COVID VAX 2021)
Self-Care
- Tobacco Usage
Do you now, or have you ever smoked?: Never smoked
- Alcohol & Drugs Usage
Amount/day: Social Occasions
- Meals & Dining
Meals & Dining: Patient skips meals: No, Food Intolerance / Allergy: No, Cultural / Judaism Dietary Needs: No
Primary Food President Sales And Marketing: Self
Primary Yeast Pumper: Self
Dining Out Frequency: 4-6x per week
- Physical Activity
Physical Limitation: Yes (STENTS PLACED 05/2025; CARDIAC REHAB BEGINS 05/2025)
Patient participates in physical Activity: No
- Self Foot-Care
Foot Problems: None
- Patient-Self Assessment
Diabetes Knowledge: Poor
Feelings About Diabetes: Guilt, Sadness / Depression
General Health: Poor
Importance of Health: Extremely
Stress Level: Medium
Barriers to Diabetes Management: Other (STATES HE DOES NOT KNOW)
Depression Survey Score: 2
- Diabetes Identification
Carries Diabetes Identification: No (ORDERED 05/14/2025)
Diabetes Identification Information Provided: Yes
Care Plan
- Education Needs
Patient Education Needs: Diabetes disease process, Chronic complications, Acute complications, Medication, Monitoring, Physical activity, Psychosocial Adjustment, Nutritional management, Goal setting & problem solving
Recommended Diabetes Training Program based on assessment: Outpatient Diabetes Education Program
- Plan of Care
Plan of Care:
DSME INITIAL CONSULTATION
Met with participant today for registration and initiation of Diabetes Self-management. He was recently inpatient this week, NSTEMI with stents placed. His HbA1c on 05/13/2025 was 11.4%. While inpatient, he was prescribed MDI with Novolog (6 u with
meals) and Lantus (22 u at night). We provided him with a Free Style Bob 3+ CGM, placed and reviewed andrew functionality and reporting. He has a PCP appt by the end of May; new endo appt pending. I reminded him to obtain an eye exam and inform
provider of his DM diagnosis.
He was upset during the meeting and crying, worried about complications from DM. He also has a lot of stress with work and previous divorce. States he has anxiety from his divorce, as well. I reviewed his CGM report; his TIR is 72% and 9% lows.
He had been sleeping on the side with the CGM, I explained this can cause low readings due to compression. His CGM #'s have been up to 40 points different than his glucometer, I explained there will be variation as the CGM rests in interstitial
fluid and to treat based on a fingerstick blood glucose if he is questioning the numbers. His BS has been 88 preprandial, 90-122 2 hours postprandial. I also reminded him that Novolog is to be injected if he is eating meals; he just started eating
3 meals a day and used to skip breakfast. He was not aware to not take Novolog if not eating.
We reviewed complications of diabetes, fasting and 2 hour post prandial glucose goals, signs and symptoms of hyperglycemia, signs and symptoms of hypoglycemia, and hypoglycemia protocol. We discussed exercise recommendations of at least 30 minutes
per day to help lower glucose levels. He has cardiac rehab starting the week of 05/27/2025.
I reviewed and provided diabetes management booklet, insurance billing code and advised he contact his health plan to discuss coverage and cost.
He has phone # for office if additional needs arise prior to class.
--- NOTE | 2025-05-17 14:37 | PN.DIAED04 ---
Education Record
- Education Record
Class Attended: Other (DSME INITIAL CONSULTATION)
DSME Class Series Code: [id number]
Instructor: Registered Nurse (Mady Jacobs RN)
Pre-Program Knowledge: No knowledge
Pre-Test Score (%): 55
Goals
- Goal 1
Being Active: Exercise 30 minutes-5 times per week
Goals To Be Evaluated: Exercise 30 mins-5x/week
- Goal 2
Healthy Eating: Follow meal plan
Goals To Be Evaluated: Follow meal plan
- Goal 3
Monitoring: Check blood sugar 4x daily-b4 breakfast/b4 lunch/b4 dinner/at bedtime (Wants to get off insulin)
Goals To Be Evaluated: Check blood sugar 4x/day
--- NOTE | 2025-05-21 14:38 | PN.DIAED14 ---
This is to notify you that your patient with diabetes, STORM CAO ( 1975), has enrolled in our diabetes self-management classes that are being held at [facility].
These classes will include an introduction to diabetes, diet, medication, exercise and prevention of complications. At the end of our class series, you will receive a report of your patient's participation and progress for your records.
Please contact me at the Diabetes Center, , if there is any particular information regarding your patient that might be helpful to me.
Sincerely,
Antonio KRAMER-KASSANDRA, [facility]
--- NOTE | 2025-05-21 14:38 | PN.DIAED04 ---
Education Record
- Education Record
Class Attended: Class 1
DSME Class Series Code: [id number]
Instructor: Registered Nurse (Mady Jacobs RN)
Class Curriculum:
Outpatient Diabetes Education Program:
Class 1 (120 minutes)
Describe the diabetes disease process and treatment options
Diabetes management
Develop personal strategies to promote health and behavior change
Integrate psychosocial adjustment for daily living
Monitor blood glucose and other parameters. Interpret and use the results for self-management decision making
Prevent, detect, and treat acute complications
Class Length (mins): 120
Post-Class 1 Test Score (%): 88
--- NOTE | 2025-05-23 17:55 | PN.DIAED06 ---
Meal Plans - Regular
- Meal Plan
Diabetic Meal Plan Name: 2000 calories
Breakfast - Total Carbohydrate (grams): 45
Breakfast - Starch Carbohydrate: 0
Breakfast - Fruit Carbohydrate: 0
Breakfast - Milk Carbohydrate: 0
Breakfast - Nonstarchy Vegetables: Yes
Breakfast - Meat/Protein: 1
Breakfast - Fat: 2
Morning Snack - Total Carbohydrate (grams): 30
Morning Snack - Starch Carbohydrate: 0
Morning Snack - Fruit Carbohydrate: 0
Morning Snack - Milk Carbohydrate: 0
Morning Snack - Nonstarchy Vegetables: Yes
Morning Snack - Meat/Protein: 0.5
Morning Snack - Fat: 0
Lunch - Total Carbohydrate (grams): 45
Lunch - Starch Carbohydrate: 0
Lunch - Fruit Carbohydrate: 0
Lunch - Milk Carbohydrate: 0
Lunch - Nonstarchy Vegetables: Yes
Lunch - Meat/Protein: 3
Lunch - Fat: 1
Afternoon Snack - Total Carbohydrate (grams): 30
Afternoon Snack - Starch Carbohydrate: 0
Afternoon Snack - Fruit Carbohydrate: 0
Afternoon Snack - Milk Carbohydrate: 0
Afternoon Snack - Nonstarchy Vegetables: Yes
Afternoon Snack - Meat/Protein: 0.5
Afternoon Snack - Fat: 0
Dinner - Total Carbohydrate (grams): 45
Dinner - Starch Carbohydrate: 0
Dinner - Fruit Carbohydrate: 0
Dinner - Milk Carbohydrate: 0
Dinner - Nonstarchy Vegetables: Yes
Dinner - Meat/Protein: 4
Dinner - Fat: 2
Evening Snack - Total Carbohydrate (grams): 15
Evening Snack - Starch Carbohydrate: 0
Evening Snack - Fruit Carbohydrate: 0
Evening Snack - Milk Carbohydrate: 0
Evening Snack - Nonstarchy Vegetables: Yes
Evening Snack - Meat/Protein: 0
Evening Snack - Fat: 0
== END ==
LOC: DES 13:21
PROVIDERS: ATTENDING PHYSICIAN Family Medicine
DX: E11.65 Type 2 diabetes mellitus with hyperglycemia (principal)
CPT/HCPCS: 99078

== ENCOUNTER → 2025-05-27 08:48 | Outpatient (REF) | payer BC, SELFPAY ==
--- NOTE | 2025-05-28 10:02 | PN.DIAED04 ---
Education Record
- Education Record
Class Attended: Class 2
DSME Class Series Code: [id number]
Instructor: Registered Dietitian (Miguelina Carpenter, RD, LDN, CDE)
Class Curriculum:
Outpatient Diabetes Education Program:
Class 2 (120 minutes)
Incorporate nutritional management into lifestyle
Understanding nutritional value
Understanding carbohydrate counting
Class Length (mins): 120
== END ==
LOC: DES 08:48
PROVIDERS: ATTENDING PHYSICIAN Family Medicine
DX: E11.65 Type 2 diabetes mellitus with hyperglycemia (principal)
CPT/HCPCS: 99078

== ENCOUNTER → 2025-06-03 13:27 | Outpatient (REF) | payer BC, SELFPAY ==
--- NOTE | 2025-06-04 14:34 | PN.DIAED04 ---
Education Record
- Education Record
Class Attended: Class 3
DSME Class Series Code: [id number]
Instructor: Registered Dietitian (Miguelina Carpenter, RD, LDN, CDE)
Class Curriculum:
Outpatient Diabetes Education Program:
Class 3 (120 minutes)
Incorporate nutritional management into lifestyle
Class Length (mins): 120
Post-Class 2 & 3 Test Score (%): 88
== END ==
LOC: DES 13:27
PROVIDERS: ATTENDING PHYSICIAN Family Medicine
DX: E11.65 Type 2 diabetes mellitus with hyperglycemia (principal)
CPT/HCPCS: 99078

== ENCOUNTER 2025-06-07 16:03 | Outpatient (RCR) | payer BC, SELFPAY ==
[2025-06-05 14:08] LABS: Glucose - Point of Care 142 mg/dl (70-99)
[2025-06-05 14:54] LABS: Glucose - Point of Care 113 mg/dl (70-99)
[2025-06-07 13:07] LABS: Glucose - Point of Care 111 mg/dl (70-99)
[2025-06-07 13:49] LABS: Glucose - Point of Care 80 mg/dl (70-99)
[2025-06-07 14:02] LABS: Glucose - Point of Care 110 mg/dl (70-99)
== END 2025-06-07 23:59 | disposition home or self-care (01) ==
LOC: CRHB 16:03
PROVIDERS: ATTENDING PHYSICIAN Internal Medicine Cardiovascular Disease
DX: I25.10 Atherosclerotic heart disease of native coronary artery without angina pectoris (principal); Z95.5 Presence of coronary angioplasty implant and graft; I25.2 Old myocardial infarction
CPT/HCPCS: 82962; 93308; 93321; 93325; 93797; 93798

== ENCOUNTER → 2025-06-10 13:17 | Outpatient (REF) | payer BC, SELFPAY ==
--- NOTE | 2025-06-11 13:32 | PN.DIAED04 ---
Education Record
- Education Record
Class Attended: Class 4
DSME Class Series Code: [id number]
Instructor: Registered Nurse (Mady Jacobs RN)
Class Curriculum:
Outpatient Diabetes Education Program:
Class 4 (120 minutes)
Develop personal strategies to promote health and behavior change
Incorporate physical activity into lifestyle
Utilize medications safety for maximum therapeutic effectiveness
Understand different medication/insulin mechanism of action
Preparing for travel
Class Length (mins): 120
Post-Class 4 Test Score (%): 87
== END ==
LOC: DES 13:17
PROVIDERS: ATTENDING PHYSICIAN Family Medicine
DX: E11.65 Type 2 diabetes mellitus with hyperglycemia (principal)
CPT/HCPCS: 99078

== ENCOUNTER → 2025-06-17 09:30 | Outpatient (REF) | payer BC, SELFPAY ==
--- NOTE | 2025-06-19 11:59 | PN.DIAED04 ---
Education Record
- Education Record
Class Attended: Class 5
DSME Class Series Code: [id number]
Instructor: Registered Nurse (Mady Jacobs RN)
Class Curriculum:
Outpatient Diabetes Education Program:
Class 5 (120 minutes)
Prevent, detect, and treat acute complications
Prevent, detect, and treat chronic complications through risk reduction
Develop personal strategies to address psychosocial issues and concerns
Development of diabetes self-management support plan
Letter to physician with DSMS plan attached sent
Class Length (mins): 120
Post-Program Knowledge: Demonstrates competency
Post-Test Score (%): 85
Post-Program Assessment
- Post-Program Assessment
Actual Weight: 245 lb 12.8 oz
Blood pressure: 110/80
Post-Program Depression Survey Score: 4
Reviewing Previous Goals?: Yes
Pre-Program Depression Survey Score: 2
- Goals 1 Evaluation
Goals To Be Evaluated: Exercise 30 mins-5x/week
- Goals 2 Evaluation
Goals To Be Evaluated: Follow meal plan
- Goals 3 Evaluation
Goals To Be Evaluated: Check blood sugar 4x/day
--- NOTE | 2025-06-19 12:00 | PN.DIAED16 ---
This is to notify you that your patient with diabetes, STORM CAO ( 1975), has attended the entire series of Diabetes Self-Management Education Classes.
Class 1 (120 minutes): Diabetes Overview - monitoring, stress/psychosocial adjustment, support, goal setting
Class 2 (120 minutes): Meal Planning - serving sizes, menu plans
Class 3 (120 minutes): Introduction to Carbohydrate Counting, Analyzing Food Labels
Class 4 (120 minutes): Medication, Exercise and Activity
Class 5 (120 minutes): Sick Day Management, Strategies to Reduce Complications, Problem Solving, Resources
The following behavioral goals were identified:
Goal #1: Exercise 30 mins-5x/week
Goal #2: Follow meal plan
Goal #3: Check blood sugar 4x/day
A follow-up call will be made within three to six months to evaluate attainment of these goals and to check post-program Hemoglobin A1c and overall progress. All class participants are encouraged to contact me if I can be any further assistance in
learning how to manage their diabetes.
Sincerely,
Antonio KRAMER-, [facility]
== END ==
LOC: DES 09:30
PROVIDERS: ATTENDING PHYSICIAN Family Medicine
DX: E11.65 Type 2 diabetes mellitus with hyperglycemia (principal)
CPT/HCPCS: 99078

== ENCOUNTER 2025-07-05 13:21 | Outpatient (RCR) | payer BC, SELFPAY ==
[2025-06-10 13:12] LABS: Glucose - Point of Care 118 mg/dl (70-99)
[2025-06-10 14:01] LABS: Glucose - Point of Care 91 mg/dl (70-99)
[2025-06-10 14:33] LABS: Glucose - Point of Care 144 mg/dl (70-99)
[2025-06-12 13:11] LABS: Glucose - Point of Care 115 mg/dl (70-99)
[2025-06-12 13:56] LABS: Glucose - Point of Care 114 mg/dl (70-99)
[2025-06-14 13:03] LABS: Glucose - Point of Care 97 mg/dl (70-99)
[2025-06-14 13:25] LABS: Glucose - Point of Care 111 mg/dl (70-99)
[2025-06-14 13:57] LABS: Glucose - Point of Care 111 mg/dl (70-99)
[2025-06-17 13:08] LABS: Glucose - Point of Care 136 mg/dl (70-99)
[2025-06-17 13:59] LABS: Glucose - Point of Care 99 mg/dl (70-99)
[2025-06-21 13:18] LABS: Glucose - Point of Care 99 mg/dl (70-99)
[2025-06-21 14:02] LABS: Glucose - Point of Care 96 mg/dl (70-99)
[2025-06-24 15:10] LABS: Glucose - Point of Care 81 mg/dl (70-99)
[2025-06-24 15:18] LABS: Glucose - Point of Care 92 mg/dl (70-99)
[2025-06-24 15:33] LABS: Glucose - Point of Care 117 mg/dl (70-99)
[2025-06-24 16:21] LABS: Glucose - Point of Care 148 mg/dl (70-99)
[2025-06-26 13:08] LABS: Glucose - Point of Care 147 mg/dl (70-99)
[2025-06-26 13:52] LABS: Glucose - Point of Care 112 mg/dl (70-99)
[2025-07-01 11:01] LABS: Glucose - Point of Care 92 mg/dl (70-99)
[2025-07-01 11:17] LABS: Glucose - Point of Care 111 mg/dl (70-99)
[2025-07-01 12:01] LABS: Glucose - Point of Care 127 mg/dl (70-99)
[2025-07-05 13:08] LABS: Glucose - Point of Care 90 mg/dl (70-99)
[2025-07-05 13:17] LABS: Glucose - Point of Care 108 mg/dl (70-99)
[2025-07-05 14:03] LABS: Glucose - Point of Care 98 mg/dl (70-99)
== END 2025-07-05 23:59 | disposition home or self-care (01) ==
LOC: CRHB 13:21
PROVIDERS: ATTENDING PHYSICIAN Internal Medicine Cardiovascular Disease
DX: I25.2 Old myocardial infarction (principal); Z95.5 Presence of coronary angioplasty implant and graft; I21.4 Non-ST elevation (NSTEMI) myocardial infarction; R93.1 Abnormal findings on diagnostic imaging of heart and coronary circulation; I25.10 Atherosclerotic heart disease of native coronary artery without angina pectoris
CPT/HCPCS: 82962; 93005; 93797; 93798

== ENCOUNTER 2025-07-10 14:25 | Outpatient (RCR) | payer BC, SELFPAY ==
[2025-07-08 13:17] LABS: Glucose - Point of Care 101 mg/dl (70-99)
[2025-07-08 14:04] LABS: Glucose - Point of Care 102 mg/dl (70-99)
[2025-07-10 13:13] LABS: Glucose - Point of Care 123 mg/dl (70-99)
[2025-07-10 14:01] LABS: Glucose - Point of Care 94 mg/dl (70-99)
== END 2025-07-10 23:59 | disposition home or self-care (01) ==
LOC: CRHB 14:25
PROVIDERS: ATTENDING PHYSICIAN Internal Medicine Cardiovascular Disease
DX: I21.4 Non-ST elevation (NSTEMI) myocardial infarction (principal); Z95.5 Presence of coronary angioplasty implant and graft; I25.2 Old myocardial infarction; R93.1 Abnormal findings on diagnostic imaging of heart and coronary circulation
CPT/HCPCS: 82962; 93797; 93798